=== PATIENT | male | born 1945 | race Caucasian/White ===

== ENCOUNTER 2024-02-03 10:12 | Emergency (ER) | payer MEDICARE, OTHER, SELFPAY ==
[2024-02-03] VITALS (7 sets, daily range): BP systolic 123–150; BP diastolic 59–85; PULSE 87–106; RESP 17–22; TEMP 36.6; O2SAT 94–98; BMI 30.4
--- NOTE | 2024-02-03 10:48 | DI.RAD.S_ITS ---
PROCEDURE: XR CHEST 2V INDICATIONS: cough, congestion TECHNIQUE: 2 views of the chest were acquired. COMPARISON: None. FINDINGS: Surgical changes and devices: None. Lungs and pleura: Generalized abnormal prominence can be seen. No jackeline focal consolidation can seen. No pleural effusions or pneumothorax. The lungs are hyperexpanded, with flattening of the hemidiaphragms seen. Mediastinum: The cardiac contours are within normal limits. The aorta demonstrates calcification and tortuosity. There is a large hiatal hernia. Bones and chest wall: No suspicious bony abnormalities. Age-appropriate bony degenerative changes are seen. Soft tissues appear unremarkable. IMPRESSION: Generalized interstitial type infiltrates are seen. Please consider pulmonary edema versus atypical/viral infiltrate. Additional findings: Hyperexpanded lungs Large hiatal hernia Dictated by: Anurag Agneles M.D. on 02/03/2024 at 10:13 Approved by: Anurag Angeles M.D. on 02/03/2024 at 10:15
[2024-02-03 12:18] LABS: Adenovirus Not Detected (Not Detect); B. parapertussis Not Detected (Not Detecte); Bordetella pertussis Not Detected (Not Detect); Chlamydophila pneumoniae Not Detected (Not Detect); Coronavirus 229E Not Detected (Not Detect); Coronavirus HKU1 Not Detected (Not Detect); Coronavirus NL 63 Not Detected (Not Detect); Coronavirus OC43 Not Detected (Not Detect); Human Metapneumovirus Not Detected (Not Detect); Human Rhinovirus/Enterovirus Detected (Not Detect); Influenza A Not Detected (Not Detect); Influenza B Not Detected (Not Detect); Mycoplasma pneumoniae Not Detected (Not Detect); Parainfluenza Virus 1 Not Detected (Not Detect); Parainfluenza Virus 2 Not Detected (Not Detect); Parainfluenza Virus 3 Not Detected (Not Detect); Parainfluenza Virus 4 Not Detected (Not Detect); Respiratory Syncytial Virus Not Detected (Not Detect); SARS- CoV-2 Not Detected (Not Detecte)
--- NOTE | 2024-02-03 13:23 | PC.NURSE ---
Called on red phone wanting to leave. Triage nurse to lobby to speak to patient
--- NOTE | 2024-02-03 13:28 | PC.NURSE ---
Spoke with patient. Advised to stay to complete evaluation. patient made mention of some chest pressure intermittent this morning. Brought back to [place] for EKG.
--- NOTE | 2024-02-03 13:34 | EKG_ITS ---
[address] [address] Test Date: 2024-02-03 Pat Name: Justen Tong Department: [facility] Room: Gender: Male [employer]: : 1945 Requested By: Order Number: [id number] Reading MD: Juan Gallagher Measurements Intervals [place] Rate: 87 P: 69 VA: 146 QRS: 10 QRSD: 84 T: 19 QT: 338 QTc: 406 Interpretive Statements Normal sinus rhythm Electronically Signed On 02-03-2024 15:35:35 PST by Juan Gallagher
--- NOTE | 2024-02-03 13:43 | PC.NURSE ---
Patient denies chest pain at present. Persistent cough.
--- NOTE | 2024-02-03 15:25 | ED.URI ---
HPI - URI/Sore Throat General Chief Complaint: Upper Respiratory Symptoms Stated Complaint: upper resp cough cold for weeks Time Seen by Provider: 02/03/24 15:24 Source: patient Mode of arrival: Family Vehicle History of Present Illness HPI Narrative: 78-year-old male with recent left sinus infection that improved with course of oral Augmentin 3-4 weeks ago, now with new cough last few days, increasing shortness of breath. He denies chest pain. Also denies nausea or vomiting, no abdominal pain, no diarrhea. No black or red stools. No frequency of urination or painful urination. He has not been around others with respiratory illness symptoms. Related Data Previous Rx's Medication Instructions Recorded albuterol sulfate 90 mcg/actuation 2 puff inhalation Q6H PRN 02/03/24 aerosol inhaler shortness of breath or wheezing #8.5 grams doxycycline hyclate 100 mg capsule 100 mg PO BID #20 caps 02/03/24 prednisone 20 mg tablet 40 mg (2 x 20 mg) PO DAILY 5 days 02/03/24 #10 tabs Allergies Allergy/AdvReac Type Severity Reaction Status Date / Time Sulfa (Sulfonamide Allergy Unknown Verified 02/03/24 10:54 Antibiotics) Review of Systems Review of Systems Narrative: See HPI Patient History Social History Smoking Status: Former smoker Smoking Status: Former smoker tobacco type: cigarettes alcohol intake frequency: 0-2 drinks per day Alcohol type: wine Substance Use Type: does not use Exam Narrative Exam Narrative: GENERAL: Well-developed patient, in mild distress. HEAD: Atraumatic. Normocephalic. EYES: Pupils equal round and reactive. Extraocular motions intact. No scleral icterus. No injection or drainage. ENT: Nose without bleeding, purulent drainage. Throat without erythema, tonsillar hypertrophy or exudate. Airway patent. NECK: Trachea midline. Non tender CARDIOVASCULAR: Regular rate and rhythm without murmurs, gallops, or rubs. RESPIRATORY: Clear to auscultation. Breath sounds equal bilaterally. No wheezes, rales, or rhonchi. GASTROINTESTINAL: Abdomen soft, non-tender, nondistended. EXTREMITIES: No edema or joint tenderness. BACK: Nontender without deformity or crepitance. No flank tenderness. NEURO: AOx3. Motor functions grossly nonfocal SKIN: No rash or erythema of visible areas Initial Vital Signs Initial Vital Signs: Vital Signs Temperature 97.8 F 02/03/24 10:48 Pulse Rate 98 H 02/03/24 10:48 Respiratory Rate 17 02/03/24 10:48 Blood Pressure 145/67 H 02/03/24 10:48 Pulse Oximetry 98 02/03/24 10:48 Oxygen Delivery Method Room Air 02/03/24 10:48 Course Orders Ordered: Discontinued Medications Albuterol (Albuterol 2.5 Mg/3 Ml Neb (Adult)) 2.5 mg INH NOW ONE Stop: 02/03/24 15:17 Last Admin: 02/03/24 15:29 Dose: 2.5 mg Documented By: DARREL Albuterol (Albuterol 2.5 Mg/3 Ml Neb (Adult)) 2.5 mg INH NOW ONE Stop: 02/03/24 15:25 Last Admin: 02/03/24 16:52 Dose: Not Given Documented By: DARREL Doxycycline Hyclate (Doxycycline Hyclate 100 Mg Tablet) 100 mg PO NOW ONE Stop: 02/03/24 16:30 Last Admin: 02/03/24 16:46 Dose: 100 mg Documented By: DARREL Prednisone (Prednisone 20 Mg Tablet) 40 mg PO NOW ONE Stop: 02/03/24 16:30 Last Admin: 02/03/24 16:46 Dose: 40 mg Documented By: DARREL Vital Signs Vital signs: Vital Signs - 8 hr 02/03/24 10:48 02/03/24 13:37 02/03/24 15:07 Temperature 97.8 F Pulse Rate 98 H 97 H 93 H Respiratory Rate 17 22 Blood Pressure 145/67 H 135/85 Pulse Oximetry 98 94 98 Oxygen Delivery Method Room Air Room Air 02/03/24 15:08 02/03/24 15:08 Temperature Pulse Rate 93 H Respiratory Rate Blood Pressure 150/73 H Pulse Oximetry 98 Oxygen Delivery Method Room Air MDM - URI/Sore Throat Lab Data Attestation: I reviewed the patient's lab results. Lab results narrative: Resp panel positive for rhinovirus Labs: Lab Results 02/03/24 Range/Units 10:46 Chlamy pneumoniae PCR Not detected (Not Detect) Adenovirus (PCR) Not detected (Not Detect) B. pertussis DNA (PCR) Not detected (Not Detect) B.parapertussis DNA PCR Not detected (Not Detecte) Coronavirus OC43 (PCR) Not detected (Not Detect) Coronavirus HKU1 (PCR) Not detected (Not Detect) Coronavirus 229E (PCR) Not detected (Not Detect) SARS-CoV-2 (PCR) Not detected (Not Detecte) Coronavirus NL63 (PCR) Not detected (Not Detect) Human Metapneumovir PCR Not detected (Not Detect) Influenza Type A (PCR) Not detected (Not Detect) Influenza Type B (PCR) Not detected (Not Detect) M. pneumoniae (PCR) Not detected (Not Detect) Parainfluenza 1 (PCR) Not detected (Not Detect) Parainfluenza 2 (PCR) Not detected (Not Detect) Parainfluenza 3 (PCR) Not detected (Not Detect) Parainfluenza 4 (PCR) Not detected (Not Detect) RSV (PCR) Not detected (Not Detect) Entero/Rhino (PCR) Detected H (Not Detect) MDM Narrative Medical decision making narrative: 78-year-old male with recent course of Augmentin for sinus infection, now with new cough and increasing shortness of breath, no oxygen requirement. Screening chest x-ray and respiratory panel sent from triage. Respiratory panel negative for COVID and influenza but positive for rhino virus. Chest x-ray suspicious for atypical pneumonia changes, see radiology report. Patient with inhaler at home, given a breathing treatment here, feels better. We will give oral prednisone now, prescription for prednisone pulse 5 days. We will give doxycycline antibiotic for atypical pneumonia coverage, though might be viral changes only, consider bacterial superinfection with/after viral illness. Patient agreeable to this plan, also would like refill of albuterol. Prescriptions for further prednisone and doxycycline and refill of albuterol sent to his pharmacy, usual [facility] out of the region, we will send to [facility]. Stable, home with family Discharge Plan Departure Patient Disposition: Home Clinical Impression: Atypical pneumonia, History of asthma Activity Restrictions/Additional Instructions: Recent course of Augmentin antibiotic for sinusitis that seemed to improved symptoms. Now with new cough and increasing shortness of breath, using home inhaler. Breathing treatment in the emergency department helped symptoms. Chest x-ray suspicious for atypical pneumonia. Respiratory swab positive for rhino virus otherwise negative including influenza and COVID screening. Trial of doxycycline antibiotic for atypical pneumonia coverage, 1st dose now, further antibiotics sent to your pharmacy. Prednisone oral dose now, further prednisone sent to your pharmacy. Refill of albuterol prescription sent to your pharmacy. Recheck symptoms with your regular doctor if not improving in the next 2-3 days. Return to this/nearest emergency department for any change worsening symptoms or any concerns prior Prescriptions: New doxycycline hyclate 100 mg capsule 100 mg PO BID Qty: 20 0RF albuterol sulfate 90 mcg/actuation HFA aerosol inhaler 2 puff inhalation Q6H PRN (Reason: shortness of breath or wheezing) Qty: 8.5 0RF prednisone 20 mg tablet 40 mg PO DAILY 5 Days Qty: 10 0RF Stand Alone Forms: Patient Portal/API/Survey
[2024-02-03] MEDS: ALBUTEROL 2.5 MG/3 ML NEB (ADULT) INH (15:29)
[2024-02-03] MEDS: DOXYCYCLINE HYCLATE 100 MG TABLET PO (16:46)
[2024-02-03] MEDS: predniSONE 20 MG TABLET 40 MG PO (16:46)
== END 2024-02-03 17:16 | disposition home or self-care (01) ==
PROVIDERS: Emergency Provider Emergency Medicine
DX: J18.9 Pneumonia, unspecified organism (principal); B34.8 Other viral infections of unspecified site; Z87.09 Personal history of other diseases of the respiratory system; Z87.891 Personal history of nicotine dependence
CPT/HCPCS: 71046; 87633; 93005; 99283; 99284; J7613